=== PATIENT | female | born 1955 | race Caucasian/White ===

== ENCOUNTER 2019-10-16 14:23 | Outpatient (CLI) | payer MEDICARE, SELFPAY ==
[2019-10-16 14:41] LABS: Add Urine Microscopic? YES; Appearance Urine Clear (Clear); Bilirubin Urine Negative (Negative); Blood Urine Negative (Negative); Color Urine Yellow (Yellow); Glucose Urine UA Negative (Negative); Ketones Urine Negative (Negative); Leukocyte Esterase Ur Trace LEU/UL (Negative); Nitrate Urine Negative (Negative); Protein Urine Negative (Negative); Specific Grav Ur <= 1.005 (1.010-1.020); Urobilinogen Urine 0.2 mg/dL (0.2-1.0)
[2019-10-16 15:37] LABS: RBC Urine 0-2 /hpf (0-2); Squamous Epithelial Cell Urine Few /hpf (Few); WBC Urine 0-3 /hpf (0-3)
[2019-10-16 15:38] LABS: Bacteria Urine 1+ /hpf; Basophils Absolute Auto 0.03 K/mm3 (0.00-0.10); Basophils Percent Auto 0.7 % (0.0-1.0); Eosinophils Absolute Auto 0.11 K/mm3 (0.02-0.50); Eosinophils Percent Auto 2.5 % (1.0-6.0); Hematocrit 43.1 % (35.0-49.0); Hemoglobin 13.8 g/dL (12.0-15.0); Immature Granulocyte Absolute 0.02 K/mm3 (0.00-0.00); Immature Granulocyte Percent A 0.5 % (0.0-0.0); Lymphocytes Absolute Auto 1.08 K/mm3 (1.10-4.50); Lymphocytes Percent Auto 24.8 % (18.0-42.0); Mean Corpuscular Hemoglobin 31.6 pg (27.0-31.0); Mean Corpuscular Volume 98.6 fL (78.0-102.0); Mean Platelet Volume 10.6 fl (9.2-11.8); Monocytes Absolute Auto 0.29 K/mm3 (0.10-0.90); Monocytes Percent Auto 6.7 % (2.0-11.0); Neutrophils Absolute Auto 2.8 K/mm3 (1.7-7.2); Neutrophils Percent Auto 64.8 % (50.0-70.0); Platelet Count Result 235 K/mm3 (150-420); Red Blood Count 4.37 M/mm3 (4.20-5.40); Red Cell Distribution Width 11.9 % (11.6-14.4); White Blood Count 4.4 K/mm3 (4.8-10.8)
[2019-10-16 15:57] LABS: Alanine Aminotransferase 30 U/L (14-59); Albumin Level 3.8 g/dL (3.4-5.0); Alkaline Phosphatase 105 U/L (46-116); Anion Gap 8 mmol/L (8-16); Aspartate Amino Transferase 24 U/L (15-37); Bilirubin,Total 0.4 mg/dL (0.00-1.00); Blood Urea Nitrogen 13 mg/dL (7-18); Calcium 8.6 mg/dL (8.5-10.1); Carbon Dioxide 29 mmol/L (21-32); Chloride 106 mmol/L (98-108); Estimated Glomerular Filt Rate > 60; Glucose 110 mg/dL (70-99); Osmolality Calculated 297 mOsm/kg (285-295); Potassium 3.9 mmol/L (3.5-5.1); Sodium 143 mmol/L (136-145); Total Protein 7.3 g/dL (6.4-8.2)
== END 2019-10-16 14:24 | disposition home or self-care (01) ==
LOC: CHSLAB 14:26
PROVIDERS: Visit Provider Internal Medicine Infectious Disease
DX: A02.9 Salmonella infection, unspecified (principal)
CPT/HCPCS: 36415; 80053; 81001; 85025; 87040

== ENCOUNTER → 2021-01-04 11:23 | Outpatient (CLI) | payer MEDICARE, SELFPAY ==
--- NOTE | ~2021-01-04 | MM_ITS ---
EXAMINATION: MM screening ya BI w irene HISTORY: Screening mammogram TECHNIQUE: Craniocaudal and mediolateral oblique 3-D tomosynthesis images were obtained and synthetic 2-D images were generated. CAD analysis was submitted and interpreted. COMPARISON: 01/22/2019, 11/16/2014 bilateral screening mammogram examinations BREAST PARENCHYMAL COMPOSITION: There are scattered areas of fibroglandular density. FINDINGS: Stable mild fibroglandular asymmetry. There is no evidence of suspicious mass, calcificatio n, or architectural distortion to suggest malignancy in either breast. There has been no suspicious i nterval change. IMPRESSION: 1. No mammographic evidence of malignancy. 2. Recommend routine screening mammography in one year. BI-RADS Category 1: Negative Reviewed, dictated and finalized at location A. [employer]PERATOR
--- NOTE | ~2021-01-04 | DEXA_ITS ---
Bone Density Report Name: Marielos Layton Age: 65 Sex: Female Ethnicity: White Date of : 1955 Indication: osteopenia; monitoring treatment; inflammatory bowel disease; hysterectomy; postmenopausal Referring Provider: Renata Mina Study: Bone densitometry was performed. Exam Date: January 04, 2021 Accession number: [id number] Bone Density: Region BMD T-score Z-score Classification AP Spine (L1-L4) 0.866 -1.6 0.0 Osteopenia Femoral Neck (Left) 0.664 -1.7 -0.2 Osteopenia Total Hip (Left) 0.806 -1.1 0.0 Osteopenia Femoral Neck (Right) 0.648 -1.8 -0.4 Osteopenia Total Hip (Right) 0.811 -1.1 0.1 Osteopenia Total Hip Mean 0.809 -1.1 0.1 Osteopenia World Health Organization criteria for BMD impression classify patients as: Normal (T-score at or above -1.0), Osteopenia (T-score between -1.0 and -2.5), or Osteoporosis (T-score at or below -2.5). 10-year Fracture Risk: FRAX not reported because: Treated for osteoporosis Previous Exams: Region Exam Age BMD T-score BMD Change BMD Change Date g/cm2 vs Baseline vs Previous AP Spine(L1-L4) 01/04/2021 65 0.866 -1.6 -0.030* -0.064* 11/03/2013 58 0.930 -1.1 0.034* -0.002 06/26/2011 56 0.932 -1.0 0.036* 0.030* 05/19/2009 54 0.902 -1.3 0.006 -0.006 03/09/2008 52 0.908 -1.3 0.012 0.012 02/27/2007 51 0.896 -1.4 Total Hip(Left) 01/04/2021 65 0.806 -1.1 -0.057* -0.084* 11/03/2013 58 0.891 -0.4 0.027 -0.007 06/26/2011 56 0.898 -0.4 0.034* -0.003 05/19/2009 54 0.901 -0.3 0.038* 0.012 03/09/2008 52 0.889 -0.4 0.025 0.025 02/27/2007 51 0.864 -0.6 Total Hip(Right) 01/04/2021 65 0.811 -1.1 -0.047* -0.084* 11/03/2013 58 0.895 -0.4 0.037* -0.002 06/26/2011 56 0.897 -0.4 0.039* 0.026 05/19/2009 54 0.870 -0.6 0.012 0.004 03/09/2008 52 0.866 -0.6 0.008 0.008 02/27/2007 51 0.858 -0.7 *Denotes significance at 95% confidence level, LSC for AP Spine = 0.022 g/cm2, LSC for Total Hip = 0.027 g/cm2 Clinical Information Provided by Patient: Is being treated for osteoporosis Has used the following medications: HRT (i.e. estrogen/hormone therapy) Has the following medical conditions: Inflammatory bowel diseases, Hysterectomy, colitis P
== END ==
PROVIDERS: Visit Provider Obstetrics & Gynecology
DX: Z12.31 Encounter for screening mammogram for malignant neoplasm of breast (principal); M81.0 Age-related osteoporosis without current pathological fracture; M85.88 Other specified disorders of bone density and structure, other site; M85.852 Other specified disorders of bone density and structure, left thigh; M85.851 Other specified disorders of bone density and structure, right thigh
CPT/HCPCS: 77063; 77067; 77080